=== PATIENT | male | born 1990 | race Two or more races ===

== ENCOUNTER 2018-01-15 10:08 | Emergency (ER) | payer SELFPAY ==
[2018-01-15 10:13] VITALS: BP 118/73
[2018-01-15] MEDS ORDERED: LIDOCAINE 2% VISCOUS SOLN 20 ML UDCUP PO ONE (10:23)
--- NOTE | 2018-01-15 10:23 | ER Document Report ---
HPI - HPI Patient complains to provider of: toothache Onset: Last week Onset/Duration: Gradual Pain Level: 5 Context: 27 yo male with worsening decay 3rd molar pain this past week. hasn't seen dentist. No fever or facial swelling Associated Symptoms: None Exacerbated by: Other - chewing Relieved by: Denies Similar symptoms previously: Yes Recently seen / treated by doctor: No - ROS ROS below otherwise negative: Yes Systems Reviewed and Negative: Yes All other systems reviewed and negative Past Medical History - General Information source: Patient - Social History Smoking Status: Unknown if Ever Smoked Frequency of alcohol use: None Drug Abuse: None Lives with: Family Family History: Reviewed & Not Pertinent - Medical History Medical History: Negative Surgical Hx: Negative Vertical Provider Document - CONSTITUTIONAL Agree With Documented VS: Yes Exam Limitations: No Limitations General Appearance: No Apparent Distress - INFECTION CONTROL TRAVEL OUTSIDE OF THE [place] IN LAST 30 DAYS: No - HEENT HEENT: Normocephalic Notes: decayed 3rd molars with gingival inflammation. No abscess palpated - NECK Neck: Supple. negative: Lymphadenopathy-Left, Lymphadenopathy-Right - NEURO Level of Consciousness: Awake - DERM Integumentary: No Rash Course - Vital Signs Vital signs: Temp Pulse Resp BP Pulse Ox 97.8 F 62 16 118/73 99 01/15/18 10:11 01/15/18 10:11 01/15/18 10:11 01/15/18 10:11 01/15/18 10:11 Discharge - Discharge Clinical Impression: Dental pain and decay Condition: Good Disposition: HOME, SELF-CARE Instructions: Dentist, Penicillin V K ([facility]), Toothache ([facility]), Topical Lidocaine ([facility]) Additional Instructions: Penicillin Tylenol Motrin See the dentist Prescriptions: Ibuprofen [Motrin 800 mg Tablet] 800 mg PO Q8HP PRN #30 tablet PRN Reason: Penicillin V Potassium [Penicillin Vk 500 mg Tablet] 500 mg PO QID #40 tablet
== END 2018-01-15 10:41 | disposition home or self-care (01) ==
LOC: ER 10:08
DX: K08.89 Other specified disorders of teeth and supporting structures (principal); K02.9 Dental caries, unspecified
CPT/HCPCS: 99282; J3490

== ENCOUNTER 2018-07-08 09:51 | Emergency (ER) | payer SELFPAY ==
[2018-07-08 09:56] VITALS: BP 114/69
[2018-07-08] MEDS ORDERED: IBUPROFEN 800 MG TABLET PO ONE (10:16)
[2018-07-08] MEDS ORDERED: PENICILLIN V POTASSIUM 500 MG TABLET PO ONE (10:16)
--- NOTE | 2018-07-08 10:20 | ER Document Report ---
HPI - HPI Patient complains to provider of: Dental pain Time Seen by Provider: 07/08/18 10:09 Onset/Duration: Worse Quality of pain: Achy Pain Level: 2 Context: Patient complains of dental pain for several years that worsened yesterday. Patient denies any fever or facial swelling. Patient does not have a local dentist. Associated Symptoms: Other - Dental pain. denies: Fever Exacerbated by: Denies Relieved by: Denies Similar symptoms previously: Yes Recently seen / treated by doctor: No - ROS ROS below otherwise negative: Yes Systems Reviewed and Negative: Yes All other systems reviewed and negative - CONSTITUTIONAL Constitutional: DENIES: Fever, Chills - EENT EENT: DENIES: Ear Pain - GASTROINTESTINAL Gastrointestinal: DENIES: Nausea, Patient vomiting - DERM Skin Color: Normal Skin Problems: None Past Medical History - General Information source: Patient - Social History Smoking Status: Never Smoker Frequency of alcohol use: None Drug Abuse: None Occupation: None Family History: Reviewed & Not Pertinent - Medical History Medical History: Negative Renal/ Medical History: Denies: Hx Peritoneal Dialysis Surgical Hx: Negative Vertical Provider Document - CONSTITUTIONAL Agree With Documented VS: Yes Exam Limitations: No Limitations General Appearance: WD/WN - INFECTION CONTROL TRAVEL OUTSIDE OF THE [place] IN LAST 30 DAYS: No - HEENT HEENT: Atraumatic, Normocephalic. negative: Pharyngeal Exudate, Pharyngeal Tenderness, Pharyngeal Erythema, Tympanic Membrane Red, Tympanic Membrane Bulging Mouth Diagram: 1 - Dental decay, fracture, no abscess, no trismus, no potential airway compromise - NECK Neck: Normal Inspection, Supple. negative: Lymphadenopathy-Left, Lymphadenopathy-Right - RESPIRATORY Respiratory: Breath Sounds Normal, No Respiratory Distress - CARDIOVASCULAR Cardiovascular: Regular Rate, Regular Rhythm - MUSCULOSKELETAL/EXTREMETIES Musculoskeletal/Extremeties: MAEW - NEURO Level of Consciousness: Awake, Alert, Appropriate Motor/Sensory: No Motor Deficit - DERM Integumentary: Warm, Dry, No Rash Course - Vital Signs Vital signs: Temp Pulse Resp BP Pulse Ox 97.9 F 65 14 114/69 98 07/08/18 09:54 07/08/18 09:54 07/08/18 09:54 07/08/18 09:54 07/08/18 09:54 Discharge - Discharge Clinical Impression: Toothache Condition: Stable Disposition: HOME, SELF-CARE Instructions: Dentist, Penicillin V K ([facility]), Toothache ([facility]) Additional Instructions: Return immediately for any new or worsening symptoms Followup with your primary care provider, call tomorrow to make a followup appointment Follow-up with a dental care provider for recheck Prescriptions: Naproxen [Naprosyn 250 Nmg Tablet] 1 tab PO BID #14 tablet Penicillin V Potassium [Penicillin Vk 500 mg Tablet] 500 mg PO BID #20 tablet Referrals: [facility] [Provider Group] - Follow up as needed
== END 2018-07-08 10:31 | disposition home or self-care (01) ==
LOC: ER 09:51
DX: K08.9 Disorder of teeth and supporting structures, unspecified (principal)
CPT/HCPCS: 99283